=== PATIENT | female | born 1955 | race Caucasian/White ===

== ENCOUNTER 2019-07-05 09:27 | Day surgery (SDC) | payer BC ==
[~2019-07-05] VITALS: Ht 162.6 cm; Wt 80.5 kg
[2019-07-05 09:56] VITALS: BP 168/88
[2019-07-05] MEDS ORDERED: LEVO25TA4 PO (10:06)
[2019-07-05] MEDS ORDERED: GABA600T7 PO (10:06)
[2019-07-05] MEDS ORDERED: PANT40TA3 PO (10:06)
[2019-07-05] MEDS ORDERED: DIPHENHYDRAMINE 50 MG/ML, 1ML ONE (10:16)
[2019-07-05] MEDS ORDERED: DIPHENHYDRAMINE 50 MG/ML, 1ML IVPush ONE (10:30)
[2019-07-05] MEDS ORDERED: FENTANYL PF 100 MCG/2ML ONE (13:44)
[2019-07-05] MEDS ORDERED: MIDAZOLAM 1 MG/ML, 5ML ONE (13:44)
== END 2019-07-05 15:50 | disposition home or self-care (01) ==
LOC: CACL 09:27
PROVIDERS: ATTEND Internal Medicine Cardiovascular Disease
DX: I27.9 Pulmonary heart disease, unspecified (principal); I27.21 Secondary pulmonary arterial hypertension; J44.9 Chronic obstructive pulmonary disease, unspecified; Z79.899 Other long term (current) drug therapy; I10 Essential (primary) hypertension; Z87.891 Personal history of nicotine dependence; Z88.2 Allergy status to sulfonamides
CPT/HCPCS: 93451; 99156; C1769; C1894; J1200; J2250; J3010